=== PATIENT | female | born 2000 | race Caucasian/White ===

== ENCOUNTER 2018-12-25 17:51 | Emergency (ER) | payer OTHER ==
[~2018-12-25] VITALS: Ht 167.6 cm; Wt 58.1 kg
[2018-12-25 18:17] LABS: BASOPHILS # (AUTO) 0.1 10^3/uL (0.0-0.1); BASOPHILS % (AUTO) 1 % (0-10); EOSINOPHILS # (AUTO) 0.1 10^3/uL (0.0-0.3); EOSINOPHILS % (AUTO) 1 % (0-10); HEMATOCRIT 40 % (35-52); HEMOGLOBIN 13.5 G/DL (11.5-16.0); LYMPHOCYTES # (AUTO) 2.3 X 10^3 (1.0-4.0); LYMPHOCYTES % (AUTO) 36 % (12-44); MEAN CORPUSCULAR HEMOGLOBIN 30 PG (25-34); MEAN CORPUSCULAR HGB CONC 34 G/DL (32-36); MEAN CORPUSCULAR VOLUME 87 FL (80-99); MEAN PLATELET VOLUME 11.8 FL (7.4-10.4); MONOCYTES # (AUTO) 0.6 X 10^3 (0.0-1.0); MONOCYTES % (AUTO) 10 % (0-12); NEUTROPHILS # (AUTO) 3.3 X 10^3 (1.8-7.8); NEUTROPHILS % (AUTO) 52 % (42-75); PLATELET COUNT 233 10^3/uL (130-400); RED CELL DISTRIBUTION WIDTH 12.5 % (10.0-14.5); WHITE BLOOD COUNT 6.4 10^3/uL (4.3-11.0)
[2018-12-25] MEDS ORDERED: BUTA1CAP41 PO (18:23)
[2018-12-25 18:30] LABS: ALANINE AMINOTRANSFERASE 12 U/L (0-55); ALBUMIN 4.3 GM/DL (3.2-4.5); ALKALINE PHOSPHATASE 61 U/L (40-136); BILIRUBIN,TOTAL 0.5 MG/DL (0.1-1.0); BUN/CREATININE RATIO 15; CALCIUM 9.3 MG/DL (8.5-10.1); CARBON DIOXIDE 22 MMOL/L (21-32); CHLORIDE 106 MMOL/L (98-107); GFR ESTIMATED > 60; GLUCOSE 82 MG/DL (70-105); POTASSIUM 3.5 MMOL/L (3.6-5.0); SODIUM 138 MMOL/L (135-145); TOTAL PROTEIN 6.9 GM/DL (6.4-8.2)
[2018-12-25] MEDS ORDERED: LIDOCAINE 2% VISCOUS 15 ML UDC PO ONE (18:30)
[2018-12-25] MEDS ORDERED: ANTACID SUSP 30 ML UDC (MYLANTA) PO ONE (18:30)
[2018-12-25 18:32] LABS: BILIRUBIN,URINE NEGATIVE (NEGATIVE); CLARITY,URINE CLEAR; COLOR,URINE YELLOW; GLUCOSE, URINE (UA) NEGATIVE (NEGATIVE); KETONES,URINE 4+ (NEGATIVE); LEUKOCYTE ESTERASE ,URINE 1+ (NEGATIVE); NITRITE,URINE NEGATIVE (NEGATIVE); PH,URINE 5 (5-9); PROTEIN,URINE 1+ (NEGATIVE); UROBILINOGEN,URINE 1 MG/DL (NORMAL)
--- NOTE | 2018-12-25 18:37 | ED GI ---
General Chief Complaint: Abdominal/GI Problems Stated Complaint: ABD PAIN Nursing Triage Note: Patient ambulatory to ER room 7 with complaint of upper abdomen/epigastric pain that began approximately 2 days ago. Patient states the pain is worse when she wakes up in the morning and she describes the pain as cramping. Patient has had nausea but no vomiting or diarrhea. Sepsis Screen: No Definite Risk History of Present Illness Date Seen by Provider: Dec 25, 2018 Time Seen by Provider: 17:55 Initial Comments 18 -year-old female presents for epigastric pain. She states the sy mptoms have been intermittent for approximately 2 days. She has mild nausea but no vomiting or diarrhea. She's had no previous GI surgeries. She has taken no [id number] pain medication, H2 blockers or PPIs. Timing/Duration: 2-3 Days Severity/Quality: Mild Location: Epigastric Radiation: No Radiation Associated Symptoms: No Back Pain, No Chest Pain, No Diaphoresis, No Fever/Chills, No Fatigue, No Headache; Heartburn, Nausea/Vomiting; No Rash, No Shortness of Air, No Swelling/Mass in Abdomen, No Syncope, No Weakness Allergies and Home Medications Allergies Coded Allergies: No Known Drug Allergies (Unverified , 12/25/18) Home Medications Butalb/Acetaminophen/Caffeine 1 Each Capsule, 1 EACH PO Q8H PRN for MIGRAINE, (Reported) Nitrofurantoin Macrocrystal 100 Mg Capsule, 100 MG PO BID Prescribed by: SANDY HACKETT on 12/25/181951 Patient Home Medication List Home Medication List Reviewed: Yes Review of Systems Review of Systems Constitutional: no symptoms reported, see HPI Gastrointestinal: See HPI, Abdominal Pain All Other Systems Reviewed Negative Unless Noted: Yes Past [id number]-Rnxmkt Hx Past Med/Social Hx: Reviewed Nursing Past Med/Soc Hx Patient Social History Alcohol Use: Denies Use Recreational Drug Use: No Smoking Status: Never a Smoker 2nd Hand Smoke Exposure: No Recent Foreign Travel: No Contact w/Someone Who Travel: No Recent Infectious Disease Expo: No Recent Hopitalizations: No Physical Abuse: No Sexual Abuse: No Mistreated: No Fear: No Immunizations Up To Date PED Vaccines UTD: Yes Seasonal Allergies Seasonal Allergies: No Past Medical History Surgeries: Yes (dental ) Respiratory: Yes Asthma Cardiac: No Neurological: Yes Headaches /Migraines Last Menstrual Period: Dec 25, 2018 Genitourinary: No Gastrointestinal: No Musculoskeletal: No Endocrine: No HEENT: No Cancer: No Psychosocial: No Blood Disorders: No Physical Exam Vital Signs Vital Signs - First Documented 12/25/18 17:53 Temp 96.5 Pulse 84 Resp 16 B/P (MAP) 112/89 (97) Pulse Ox 99 O2 Delivery Room Air Capillary Refill : Less Than 3 Seconds Height/Weight/BMI Height: 5'6.00" Weight: 128lbs. oz. 58.266731on; BMI Method:Stated General Appearance: WD/WN, no apparent distress HEENT: PERRL/EOMI, normal ENT inspection, TMs normal, pharynx normal Neck: non-tender, full range of motion, supple, normal inspection Respiratory: chest non-tender, lungs clear, normal breath sounds Cardiovascular: normal peripheral pulses, regular rate, rhythm Gastrointestinal: normal bowel sounds, soft; No distended, No guarding, No rebound; tenderness (epigastric), other (negative Benitez) Back: normal inspection, no CVA tenderness, no vertebral tenderness Neurologic/Psychiatric: no motor/sensory deficits, alert, normal mood/affect, oriented x 3 Skin: normal color, warm/dry Progress/Results/Core Measures Results/Orders Lab Results Laboratory Tests Test 12/25/18 18:00 12/25/18 18:28 Range/Units White Blood Count 6.4 4.3-11.0 10^3/uL Red Blood Count 4.54 4.35-5.85 10^6/uL Hemoglobin 13.5 11.5-16.0 G/DL Hematocrit 40 35-52 % Mean Corpuscular Volume 87 80-99 FL Mean Corpuscular Hemoglobin 30 25-34 PG Mean Corpuscular Hemoglobin Concent 34 32-36 G/DL Red Cell Distribution Width 12.5 10.0-14.5 % Platelet Count 233 130-400 10^3/uL Mean Platelet Volume 11.8 H 7.4-10.4 FL Neutrophils (%) (Auto) 52 42-75 % Lymphocytes (%) (Auto) 36 12-44 % Monocytes (%) (Auto) 10 0-12 % Eosinophils (%) (Auto) 1 0-10 % Basophils (%) (Auto) 1 0-10 % Neutrophils # (Auto) 3.3 1.8-7.8 X 10^3 Lymphocytes # (Auto) 2.3 1.0-4.0 X 10^3 Monocytes # (Auto) 0.6 0.0-1.0 X 10^3 Eosinophils # (Auto) 0.1 0.0-0.3 10^3/uL Basophils # (Auto) 0.1 0.0-0.1 10^3/uL Sodium Level 138 135-145 MMOL/L Potassium Level 3.5 L 3.6-5.0 MMOL/L Chloride Level 106 98-107 MMOL/L Carbon Dioxide Level 22 21-32 MMOL/L Anion Gap 10 5-14 MMOL/L Blood Urea Nitrogen 12 7-18 MG/DL Creatinine 0.80 0.60-1.30 MG/DL Estimat Glomerular Filtration Rate > 60 BUN/Creatinine Ratio 15 Glucose Level 82 70-105 MG/DL Calcium Level 9.3 8.5-10.1 MG/DL Corrected Calcium 9.1 8.5-10.1 MG/DL Total Bilirubin 0.5 0.1-1.0 MG/DL Aspartate Amino Transf (AST/SGOT) 15 5-34 U/L Alanine Aminotransferase (ALT/SGPT) 12 0-55 U/L Alkaline Phosphatase 61 40-136 U/L Total Protein 6.9 6.4-8.2 GM/DL Albumin 4.3 3.2-4.5 GM/DL Urine Color YELLOW Urine Clarity CLEAR Urine pH 5 5-9 Urine Specific Sigurd 1.025 H 1.016-1.022 Urine Protein 1+ H NEGATIVE Urine Glucose (UA) NEGATIVE NEGATIVE Urine Ketones 4+ H NEGATIVE Urine Nitrite NEGATIVE NEGATIVE Urine Bilirubin NEGATIVE NEGATIVE Urine Urobilinogen 1 NORMAL MG/DL Urine Leukocyte Esterase 1+ H NEGATIVE Urine RBC (Auto) 5+ H NEGATIVE Urine RBC 5-10 H /HPF Urine WBC 2-5 /HPF Urine Squamous Epithelial Cells 10-25 H /HPF Urine Crystals NONE /LPF Urine Bacteria FEW H /HPF Urine Casts NONE /LPF Urine Mucus NEGATIVE /LPF Urine Culture Indicated YES My Orders Orders - SANDY HACKETT Urine Bedside (12/25/18 17:55) Ua Culture If Indicated (12/25/18 17:55) Cbc With Automated Diff (12/25/18 18:11) Comprehensive Metabolic Panel (12/25/18 18:11) Lidocaine 2% Viscous 15 Ml (Xylocaine Vi (12/25/18 18:30) Antacid Suspension (Mylanta Suspension (12/25/18 18:30) Urine Culture (12/25/18 18:28) Ed Iv/Invasive Line Start (12/25/18 18:49) Ns Iv 1000 Ml (Sodium Chloride 0.9%) (12/25/18 18:49) Ns Iv 1000 Ml (Sodium Chloride 0.9%) (12/25/18 18:47) Nitrofurantoin Capsule (Macrodantin Caps (12/25/18 19:00) Ketorolac Injection (Toradol Injection) (12/25/18 19:45) Ketorolac Injection (Toradol Injection) (12/25/18 19:38) Medications Given in ED Current Medications Medications Dose Ordered Sig/Jadon Route Start Time Stop Time Status Last Admin Dose Admin Al Hydrox/Mg Hydrox/Simethicone 30 ml ONCE ONCE PO 12/25/18 18:30 12/25/18 18:31 DC 12/25/18 18:30 30 ML Ketorolac Tromethamine 15 mg ONCE ONCE IVP 12/25/18 19:45 12/25/18 19:46 DC 12/25/18 19:51 15 MG Lidocaine HCl 15 ml ONCE ONCE PO 12/25/18 18:30 12/25/18 18:31 DC 12/25/18 18:30 15 ML Nitrofurantoin Macrocrystals 100 mg ONCE ONCE PO 12/25/18 19:00 12/25/18 19:01 DC 12/25/18 19:51 100 MG Vital Signs/I&O 12/25/18 12/25/18 17:53 20:01 Temp 96.5 96.5 Pulse 84 84 Resp 16 16 B/P (MAP) 112/89 (97) 112/89 (97) Pulse Ox 99 99 O2 Delivery Room Air Blood Pressure Mean: 97 Progress Progress Note : Time: 17:55 Progress Note Patient seen and evaluated. Will get labs, IV fluids, Zofran for nausea and Toradol for pain. Explained to patient that we do not have US after 0. 0 Patient had minimal treatment, all nursing staff has been busy with code and chest pain, so she has not received any treatment. She has remained stable. 1929 Labs obtained and IV started. 1944 UA shows UTI. Remainder of labs normal. Patient reports improvement in her abd pain, but continued low back pain. Will give Fentanyl 25 mcg IV. Second liter of NS, IV. 2014 Patient reports improvement in her symptoms. Discharge instructions and return precautions reviewed with the patient. All questions answered. Departure Impression Primary Impression: Urinary tract infection Qualified Codes: N30.01 - Acute cystitis with hematuria Disposition: HOME, SELF-CARE Condition: Improved Departure-Patient Inst. Decision time for Depature: 20:15 Referrals: NO,LOCAL PHYSICIAN (PCP/Family) Primary Care Physician Patient Instructions: Acute Abdomen (Belly Pain), Adult (DC), Urinary Tract Infection, Adult (DC) Add. Discharge Instructions: Increase water intake, 16 ounces every 2 hours while awake. Empty bladder frequently. Take antibiotic as prescribed. Alternate between Tylenol 650 mg and ibuprofen 600 mg every 4 hours for pain or fever. You may take over the counter Pepcid 10 mg twice daily for upper abdominal pain. Follow up with your primary care provider if symptoms aren't improving or worsen. Return to emergency department for new, urgent health care needs. All discharge instructions reviewed with patient and/or family. Voiced understanding. Scripts Nitrofurantoin Macrocrystal (Nitrofurantoin) 100 Mg Capsule 100 MG PO BID, #10 CAP 0 Refills Prov: SANDY HACEKTT 12/25/18 SANDY HACKETT Dec 25, 2018 18:36
[2018-12-25 18:44] LABS: BACTERIA,URINE FEW /HPF
--- NOTE | 2018-12-25 18:46 | NUR ---
Patient states her epigastric pain is better after GI cocktail given. Patient remains awake and alert. She denies any needs.
[2018-12-25] MEDS ORDERED: NS IV 1000 ML 1,000 ML ONE (18:47)
[2018-12-25] MEDS ORDERED: NS IV 1000 ML 1,000 ML IV SCH (18:49)
[2018-12-25] MEDS ORDERED: NITROFURANTOIN 50 MG (MACRODANTIN) CAP PO ONE (19:00)
[2018-12-25] MEDS ORDERED: KETOROLAC 30 MG/ML VIAL ONE (19:38)
[2018-12-25] MEDS ORDERED: KETOROLAC 15 MG/ML VIAL IVP ONE (19:45)
[2018-12-25] MEDS ORDERED: NITR100C PO (19:52)
[2018-12-25 20:01] VITALS: BP 112/89
== END 2018-12-25 20:03 | disposition home or self-care (01) ==
LOC: ER 17:53
DX: N39.0 Urinary tract infection, site not specified (principal); J45.909 Unspecified asthma, uncomplicated; G43.909 Migraine, unspecified, not intractable, without status migrainosus
CPT/HCPCS: 36415; 80053; 81000; 84703; 85025; 87088